=== PATIENT | male | born 1990 | race Caucasian/White ===

== ENCOUNTER 2024-09-18 10:41 | Day surgery (SDC) | payer OTHER ==
[2024-09-18 11:17] LABS: BASOPHILS ABSOLUTE AUTO 0.04 K/uL (0.00-0.20); BASOPHILS PERCENT AUTO 0.2 % (0.0-1.0); HEMATOCRIT 44.3 % (42.0-52.0); HEMOGLOBIN 15.3 g/dL (14.0-18.0); IMMATURE GRAN ABSOLUTE AUTO 0.07 K/uL (0.00-0.05); IMMATURE GRAN PERCENT AUTO 0.3 % (0.0-0.4); LYMPHOCYTES ABSOLUTE AUTO 1.22 K/uL (1.00-4.80); LYMPHOCYTES PERCENT AUTO 5.8 % (24.0-44.0); MEAN CORPUSCULAR HEMOGLOBIN 29.7 pg (28.0-32.0); MEAN CORPUSCULAR HGB CONC 34.5 g/dL (32.0-36.0); MEAN PLATELET VOLUME 9.8 fL (9.4-12.4); MONOCYTES ABSOLUTE AUTO 1.12 K/uL (0.00-0.80); MONOCYTES PERCENT AUTO 5.3 % (0.0-8.0); NEUTROPHILS ABSOLUTE AUTO 18.49 K/uL (1.80-7.70); NEUTROPHILS PERCENT AUTO 88.4 % (41.0-71.0); PLATELET COUNT,PLT 288 K/uL (150-400); RED BLOOD CELL COUNT 5.15 M/uL (4.52-5.90); WHITE BLOOD CELL COUNT,WBC 20.94 K/uL (3.9-11.3)
[2024-09-18] MEDS ORDERED: Sodium Chloride 0.9% 2.5 ML Syringe FLUSH PRN ×2 (11:42→16:10)
[2024-09-18] MEDS ORDERED: Sodium Chloride 0.9% 10 ML Syringe FLUSH PRN ×2 (11:42→16:10)
[2024-09-18 11:47] LABS: A/G RATIO 1.2 (0.9-1.6); ALBUMIN 4.6 g/dL (3.4-5.0); BILIRUBIN TOTAL 1.6 mg/dL (0.2-1.0); CALCIUM 9.8 mg/dL (8.5-10.1); CARBON DIOXIDE,CO2 29.1 mmol/L (21.0-32.0); CREATININE 1.1 mg/dL (0.8-1.3); EST CRCL DRUG DOSING (CG) 99.55 mL/min; POTASSIUM,K 4.9 mmol/L (3.5-5.1); PROTEIN TOTAL,TP 8.5 g/dL (6.4-8.2)
[2024-09-18] MEDS: Morphine 4 MG/ML Syringe IVPUSH ONE (12:02)
[2024-09-18] MEDS: Ondansetron 4 MG/2 ML SDV IVPUSH ONE (12:02)
[2024-09-18] MEDS: Iopamidol 755 MG/ML 500 ML Multipack Bottle IVPUSH STA (12:19)
[2024-09-18] MEDS: Piperacillin/Tazobactam 4.5 GM in Sodium Chloride 0.9% 100 ML IV ONE (12:51)
[2024-09-18] MEDS: HYDROmorphone 0.5 MG/0.5 ML Syringe IVPUSH ONE (13:20)
[2024-09-18] MEDS: Lactated Ringers 1,000 ML IV SCH (13:20)
[2024-09-18] MEDS ORDERED: dexmedeTOMIDine HCl 200 MCG/2 ML SDV ONE (14:25)
[2024-09-18] MEDS ORDERED: Propofol 200 MG/20 ML SDV ONE (14:26)
[2024-09-18] MEDS ORDERED: Bupivacaine 0.5% 30 ML SDV ONE (14:26)
[2024-09-18] MEDS ORDERED: fentaNYL 100 MCG/2 ML SDV ONE (14:26)
[2024-09-18] MEDS ORDERED: Ropivacaine 0.5% 5 MG/ML 30 ML SDV ONE (14:30)
[2024-09-18] MEDS ORDERED: Bupivacaine 0.25% 30 ML SDV ONE (14:30)
[2024-09-18] MEDS ORDERED: Rocuronium Bromide 50 MG/5 ML Syringe ONE (14:31)
[2024-09-18] MEDS ORDERED: Ondansetron 4 MG/2 ML SDV IVPUSH PRN ×2 (14:34→16:10)
[2024-09-18] MEDS ORDERED: Phenylephrine HCl In 0.9% NaCl 1 MG/10 ML Syringe IVPUSH PRN (14:34)
[2024-09-18] MEDS ORDERED: Morphine 2 MG/ML SYRINGE IVPUSH PRN (14:34)
[2024-09-18] MEDS ORDERED: fentaNYL 50 MCG/ML SDV IVPUSH PRN (14:34)
[2024-09-18] MEDS ORDERED: Metoclopramide 10 MG/2 ML SDV IVPUSH PRN (14:34)
[2024-09-18] MEDS ORDERED: Albuterol 0.083% 2.5 MG/3 ML Neb Soln NEB PRN (14:34)
[2024-09-18] MEDS ORDERED: HYDROmorphone 1 MG/ML Syringe IVPUSH PRN (14:34)
[2024-09-18] MEDS ORDERED: Naloxone 0.4 MG/ML SDV IVPUSH PRN (14:34)
[2024-09-18] MEDS ORDERED: Ondansetron 4 MG/2 ML SDV ONE (15:09)
[2024-09-18] MEDS ORDERED: Dexamethasone 4 MG/ML 5 ML MDV ONE (15:09)
[2024-09-18] MEDS ORDERED: Ketamine HCL/NACL, ISO-OSM 50 MG/5 ML Syringe ONE (15:10)
[2024-09-18] MEDS ORDERED: Ketorolac 30 MG/ML SDV ONE (15:32)
[2024-09-18] MEDS ORDERED: Sugammadex Sodium 200 MG/2 ML VIAL IV ONE (15:32)
[2024-09-18] MEDS ORDERED: Sodium Chloride 0.9% 20 ML SDV IV PRN (16:10)
[2024-09-18] MEDS ORDERED: diphenhydrAMINE 50 MG/ML SDV IVPUSH PRN (16:10)
[2024-09-18] MEDS: HYDROmorphone 2 MG/ML Syringe IVPUSH PRN (17:59)
[2024-09-18] MEDS: Piperacillin/Tazobactam 4.5 GM in Sodium Chloride 0.9% 100 ML IV SCH (20:46)
[2024-09-18 21:34] LABS: APPEARANCE,URINE CLEAR; BILIRUBIN,URINE NEGATIVE (NEGATIVE); COLOR,URINE YELLOW; GLUCOSE,URINE NEGATIVE (NEGATIVE); KETONES,URINE NEGATIVE (NEGATIVE); LEUKOCYTE ESTERASE,URINE NEGATIVE (NEGATIVE); NITRITE,URINE NEGATIVE (NEGATIVE); OCCULT BLOOD,URINE NEGATIVE (NEGATIVE); PH,URINE 6.5 (5.0-8.0); PROTEIN,URINE NEGATIVE (NEGATIVE); UROBILINOGEN,URINE 0.2 EU/dL (<2.0)
[2024-09-19] MEDS: Acetaminophen/oxyCODONE 325-5 MG Tab PO PRN (01:06)
== END 2024-09-19 10:30 | disposition home or self-care (01) ==
LOC: MW.ED 10:41 → MW.SDS 13:19 → MW.MS 13:19 → MW.SDS 09-19 10:30
PROVIDERS: ATTEND Surgery
DX: K35.33 Acute appendicitis with perforation, localized peritonitis, and gangrene, with abscess (principal)
CPT/HCPCS: 36415; 44970; 74177; 80053; 81003; 85025; 96361; 96365; 96375; 99285; A9270; J0131; J0665; J1100; J1171; J1885; J2270; J2405; J2543; J2704; J2795; J3010; J3490; J7120; Q9967; 00840; 64488